=== PATIENT | female | born 1995 | race Hispanic/Latino ===

== ENCOUNTER 2017-11-04 10:03 | Outpatient (CLI) | payer BC ==
--- NOTE | 2017-11-04 11:59 | Ultrasound Report ---
ULTRASOUND PELVIC COMPLETE HISTORY: Pelvic pain, cramping. COMPARISON: None. TECHNIQUE: Transabdominal and transvaginal ultrasound with color doppler interrogation. FINDINGS: Uterus: The uterus is anteverted. The uterus is normal size, contour and echo texture measuring 6.7 x 2.4 x 3.3 cm. No uterine mass. Normal cervix. Endometrium: The endometrium is homogeneous and measures 7.3 mm. No abnormality. Right ovary: 2.2 x 1.3 x 1.3 cm. No focal abnormality. Left ovary: 2.7 x 1.3 x 2.0. No focal abnormality. No pelvic fluid or mass is identified. Normal color doppler interrogation. IMPRESSION: Normal transabdominal pelvic ultrasound.
== END 2017-11-04 10:04 | disposition home or self-care (01) ==
LOC: US 10:03
PROVIDERS: ATTEND Physician Assistant Medical
DX: Z30.9 Encounter for contraceptive management, unspecified (principal); R10.2 Pelvic and perineal pain
CPT/HCPCS: 76856